=== PATIENT | female | born 1935 | race Asian ===

== ENCOUNTER 2019-11-18 21:27 | Observation (INO) | payer OTHER ==
[~2019-11-18] VITALS: Ht 152.4 cm; Wt 51.3 kg
[2019-11-18 21:27] VITALS: BP_SYST 103
[2019-11-18] MEDS ORDERED: NACL 0.9% 1,000 ML IV ONE (21:45)
[2019-11-18 22:12] LABS: BASOPHILS % (AUTO) 0.5 % (0.0-2.0); EOSINOPHILS # (AUTO) 0.1 K/uL (0.0-0.4); EOSINOPHILS % (AUTO) 1.5 % (0.0-4.0); HEMATOCRIT 49.4 % (36-48); LYMPHOCYTES # (AUTO) 1.8 K/uL (1.0-5.5); LYMPHOCYTES % (AUTO) 18.9 % (20.5-51.5); MEAN CORPUSCULAR HEMOGLOBIN 31 pg (27-31); MEAN CORPUSCULAR HGB CONC 32 % (32-36); MEAN CORPUSCULAR VOLUME 95 fL (79.0-98.0); MONOCYTES # (AUTO) 0.5 K/uL (0.0-1.0); MONOCYTES % (AUTO) 5.5 % (1.7-9.3); NEUTROPHILS % (AUTO) 73.6 % (40.0-70.0); PLATELET COUNT (AUTO) 205 K/uL (130-430); RED BLOOD CELL COUNT(AUTO) 5.23 MIL/uL (4.2-6.2); WHITE BLOOD COUNT (AUTO) 9.5 K/uL (4.8-10.8)
[2019-11-18 22:30] LABS: ANION GAP 10 (5-15); CALCIUM 9.4 mg/dL (8.4-11.0); CHLORIDE 105 mmol/L (98-107); CREATININE 1.39 mg/dL (0.55-1.30); GLUCOSE 131 mg/dL (70-99); POTASSIUM 3.8 mmol/L (3.5-5.1); SODIUM SERUM 140 mmol/L (136-145); UREA NITROGEN, BLOOD 23 mg/dL (8-21)
[2019-11-18 22:38] LABS: ALANINE AMINOTRANSFERASE 23 U/L (12-78); ALBUMIN 3.6 g/dL (3.4-4.8); ASPARTATE AMINOTRANSFERASE 22 U/L (10-37); TOTAL BILIRUBIN 0.4 mg/dL (0.0-1.0)
[2019-11-18] MEDS ORDERED: LIDOCAINE 1%, 20 ML MDV 20 ML ONE (23:33)
[2019-11-19] MEDS ORDERED: HYDROcodone/ACETAMIN 5-325 MG TAB (NORCO/ VICODIN) PO PRN (02:45)
[2019-11-19] MEDS ORDERED: ACETAMINOPHEN 325 MG TABLET PO PRN (02:45)
[2019-11-19 04:15] VITALS: BP_SYST 119
[2019-11-19] MEDS: NACL 0.9% 1,000 ML IV SCH ×2 (04:19→15:32)
[2019-11-19 07:39] LABS: BASOPHILS % (AUTO) 0.1 % (0.0-2.0); EOSINOPHILS % (AUTO) 0.1 % (0.0-4.0); HEMATOCRIT 43.1 % (36-48); HEMOGLOBIN 14.4 g/dL (12.0-16.0); LYMPHOCYTES # (AUTO) 1.5 K/uL (1.0-5.5); LYMPHOCYTES % (AUTO) 13.4 % (20.5-51.5); MEAN CORPUSCULAR HEMOGLOBIN 31 pg (27-31); MEAN CORPUSCULAR HGB CONC 33 % (32-36); MEAN CORPUSCULAR VOLUME 93 fL (79.0-98.0); MONOCYTES # (AUTO) 0.6 K/uL (0.0-1.0); MONOCYTES % (AUTO) 5.1 % (1.7-9.3); NEUTROPHILS % (AUTO) 81.3 % (40.0-70.0); PLATELET COUNT (AUTO) 173 K/uL (130-430); RED BLOOD CELL COUNT(AUTO) 4.64 MIL/uL (4.2-6.2); RED CELL DISTRIBUTION WIDTH 13.5 % (9.0-15.0); WHITE BLOOD COUNT (AUTO) 11.1 K/uL (4.8-10.8)
[2019-11-19 07:40] LABS: PROTHROMBIN TIME 9.9 SECS (9.5-12.5)
[2019-11-19 08:03] VITALS: BP_SYST 131
[2019-11-19 08:47] LABS: CHLORIDE 106 mmol/L (98-107); SODIUM SERUM 141 mmol/L (136-145)
[2019-11-19 08:48] LABS: ALANINE AMINOTRANSFERASE 22 U/L (12-78); ALBUMIN 2.9 g/dL (3.4-4.8); ANION GAP 10 (5-15); ASPARTATE AMINOTRANSFERASE 19 U/L (10-37); CALCIUM 8.8 mg/dL (8.4-11.0); CHOLESTEROL 159 mg/dL (<200); CREATININE 1.07 mg/dL (0.55-1.30); GLUCOSE 116 mg/dL (70-99); HDL CHOLESTEROL 52 mg/dL (>55); TOTAL BILIRUBIN 0.5 mg/dL (0.0-1.0); TRIGLYCERIDES 65 mg/dL (30-150); UREA NITROGEN, BLOOD 19 mg/dL (8-21)
[2019-11-19 08:49] LABS: LDL CHOLESTEROL 101 mg/dL (<100)
[2019-11-19] MEDS ORDERED: ENOXAPARIN SODIUM 30 MG/0.3 ML SYRINGE SUBCUT SCH (09:00)
[2019-11-19 12:16] VITALS: BP_SYST 131
[2019-11-19 16:23] VITALS: BP_SYST 119
[2019-11-19 16:30] VITALS: BP_SYST 119
== END 2019-11-19 18:55 | disposition home or self-care (01) ==
LOC: SED 21:27 → STU 11-19 00:09 → INTOOBSV 11-19 00:09 → STU 11-19 00:42
PROVIDERS: ADMIT Internal Medicine Hospice and Palliative Medicine; ATTEND Internal Medicine Hospice and Palliative Medicine
DX: R55 Syncope and collapse (principal); S01.111A Laceration without foreign body of right eyelid and periocular area, initial encounter; N17.9 Acute kidney failure, unspecified; N28.9 Disorder of kidney and ureter, unspecified; I10 Essential (primary) hypertension; R79.89 Other specified abnormal findings of blood chemistry; E78.00 Pure hypercholesterolemia, unspecified; W18.39XA Other fall on same level, initial encounter; Y93.89 Activity, other specified; Y92.008 Other place in unspecified non-institutional (private) residence as the place of occurrence of the external cause; Z79.899 Other long term (current) drug therapy
CPT/HCPCS: 12011; 36415 ×2; 70450; 71045; 72125; 80053 ×2; 80061; 82550; 83880; 84484 ×2; 85025 ×2; 85379; 85610; 93306; 93880; 96360; 96361; 96372; 97163; 99285; G0378; J1650; J2001; J7030 ×2